=== PATIENT | male | born 1960 | race Asian ===

== ENCOUNTER 2019-11-07 10:50 | Outpatient (CLI) | payer BC, SELFPAY ==
[2019-11-07 13:04] LABS: Hepatitis B Surface Anti Res Negative
[2019-11-07 13:25] LABS: Hepatitis B Surface Antigen Positive (Negative)
[2019-11-09 13:03] LABS: Hepatitis B Core Ab Total Reactive (Nonreactive); Hepatitis Be Antigen Nonreactive
== END 2019-11-07 10:51 | disposition home or self-care (01) ==
PROVIDERS: Visit Provider Internal Medicine Gastroenterology
DX: B16.9 Acute hepatitis B without delta-agent and without hepatic coma (principal)
CPT/HCPCS: 36415; 86704; 86706; 87340; 87350

== ENCOUNTER 2024-10-22 00:36 | Day surgery (SDC) | payer BC, SELFPAY ==
--- OUTSIDE RECORDS SUMMARY | 2024-10-22 00:39 | XMS_ITS | Clinical Summary ---
Author Organization [facility] Address [address] [place] [address] Care Team Providers Care Nurse Practitioner Manager Name Role Phone AdamsJonathan weaver Primary Care Provider [phone] Allergies No known active allergies Medications vitamin D3 (CHOLECALCIFEROL) 25 mcg tablet Take by mouth daily. Active Lutein 20 MG Tab Take 20 mg by mouth daily. Active atorvastatin (LIPITOR) 20 MG tabletIndications:M ixed hyperlipidemia Take 1 tablet (20 mg total) by mouth nightly at bedtime. at bedtime 90 tablet 1 4 Active lisinopril (PRINIVIL) 40 MG tabletIndications:E ssential hypertension Take 1 tablet daily. Pt needs appt before other refills are authorized. Can call [phone] to schedule. 90 tablet 1 5 Active valACYclovir (VALTREX) 500 MG tabletIndications:H erpes Take 1 tablet (500 mg total) by mouth daily. 90 tablet 1 5 Active Active Problems Problem Noted Date Diagnosed Date Osteopenia of necks of both femurs 12/19/2023 Liver lesion 04/13/2022 Arthralgia of both hands 02/22/2022 Hepatitis B no coma without hepatitis delta chronic (CMS/HCC HHS/HCC) 04/15/2020 Overview (11/01/2022): 07/28/20 Fibroscan CAP 321, LSM 5.8 kPa Essential hypertension 12/30/2014 Herpes 07/24/2014 Hyperlipidemia 02/04/2014 Resolved Problems Problem Noted Date Diagnosed Date Resolved Date Colon cancer screening 05/19/202112/18 Overview (05/19/2021): Added automatically from request for surgery [id number] Personal history of colonic polyps 05/19/2021 12/19/2023 Overview (05/19/2021): Added automatically from request for surgery [id number] Gall bladder polyp 02/27/2021 Elevated liver enzymes 04/21/202012/18 Rheumatoid factor positive 09/29/2017 0 12/19/2023 Pain, hand joint 09/26/2017 12/19/2023 Nasal congestion 02/16/2016 10/03/2018 Screening for prostate cancer 08/11/2015 03/21/2020 Immunizations Immunization Administration Dates Next Due PFIZER COVID-19 (ORIGINAL FO RMULATION, PURPLE CAP) mRNA, LNP-S, PF, 30 MCG/0.3 ML DOSE 07/22/2021,10/20/2020,09/29/2020 Varicella/MMR (Proquad) 09/19/2023 Family History Relation Status Comments Brother 1 Alive Brother 2 Alive Brother 3 Alive Brother 4 Alive Daughter Alive Father Maternal Grandfather Maternal Grandmother Mother Paternal Grandfather Paternal Grandmother Sister 1 Alive Sister 2 Alive Son Alive Social History Tobacco Use Types Packs/Day Years Used Date Smoking Tobacco: Never Passive Smoke Exposure: Never Smokeless Tobacco: Never Tobacco Cessation:Counseling Given: Not Answered Alcohol Use Standard Drinks/Week Comments Not Currently 0 (1 standard drink = 0.6 oz pur e alcohol) PHQ-2 Answer Date Recorded Patient Health Questionnaire-2 Score 0 11/01/2022 Sex and Gender Information Value Date Recorded Sex Assigned at Not on file Legal Sex Male 8:17 PM CDT Gender Identity Male 07/07/2021 5:56 AM TUNA PURSE SEINER Sexual Orientation Straight 07/07/2021 5: 56 AM TUNA PURSE SEINER Last Filed Vital Signs Vital Sign Reading Time Taken Comments Blood Pressure 133/77 12/19/2023 9:08 AM CDT Pulse 58 12/19/2023 9:08 AM CDT Temperature 36.8 C (98.2 F) 12/19/2023 9:08 AM CDT Respiratory Rate 18 09/19/2023 7:29 AM CDT Oxygen Saturation 99% 12/19/2023 9:08 AM CDT Inhaled Oxygen Concentration - - Weight 74.2 kg (163 lb 8 oz) 12/19/2023 9:08 AM CDT Height 182.9 cm (6') 12/19/2023 9:08 AM CDT Body Mass Index 22.17 12/19/2023 9:08 AM CDT Plan of Treatment Upcoming Encounters Date Type Department Care Team (Late st Contact Info) Description 03/04/2025 2:20 PM CDT Office Visit [facility] Family Medicine - [address] [address] Jonathan Lamas DO [address] [place] [address] Health Maintenance Due Date Last Done Comments Pneumococcal Vaccine: Pediatrics (0 to 5 Years) and At-Risk Patients (6 to 49 Years) (1 of 2 - PCV) 1968 DTaP, Tdap and Td Vaccines (1 - Tdap) 1981 RSV Immunization or 60+ Years (1 - Risk 60-74 years 1-dose series) 2022 Zoster Vaccines (1 of 2) 11/14/2023 COVID-19 Vaccine ( season) 2024 10/02/2023, 04/17/2022, 07/22/2021, Additional history exists PHQ-2 (Physician [place]) 07/11/2024 11/01/2022 Annual Physical 12/18/2024 12/19/2023, 10/10, 10/12/2021, Additional history exists Colorectal Cancer Screening Colonoscopy (10 Years) 07/13/2031 07/13/2021, 07/13/2021 Hepatitis C Completed 08/24/2022, 10/02/2019 Meningococcal B Vaccine Aged Out No l onger eligible based on patient's age to complete this topic Meningococcal Vaccine Aged Out No des yola eligible based on patient's age to complete this topic RSV Immunizations Under 20 Months Aged Out No longer eligible based on patient's age to complete this topic Procedures Procedure Name Priority Date/Time Associated Diagnosis Comments COLONOSCOPY Routine 07/13/2021 7:59 AM TUNA PURSE SEINER HEPATITIS C ANTIBODY Routine 10/02/2019 9:11 AM CDT Routine medical exam Essential hypertension Need for hepatitis C screening test from Last 3 Months or Most Recently Relevant to Health Maintenance Results * HEPATITIS C ANTIBODY (10/02/2019 9:11 AM CDT) HEPATITIS C AB NON-REACTI VE NON-REACTI VE 10/02/2019 7:43 PM CDT [facility] 10/02/2019 9:11 AM CDT [facility] Final Resul t Performing Organization Address City/State/[facility] Co de Phone Number [facility] [address] [place] [address], from Last 3 Months or Most Recently Relevant to Health Maintenance Insurance Care Teams Nurse Practitioner Manager Relationship Specialty Start Date End Date Jonathan Lamas DO [address] [place] [address] PCP - General FAMILY PRACTICE 12/14/23
--- OUTSIDE RECORDS SUMMARY | 2024-10-22 00:39 | XMS_ITS | Clinical Summary ---
Author Organization [facility] Address [address] [place] [address] Care Team Providers Care Tank Farm Operator Name Role Phone Bety Jones RN Unavailable Unavailable Ced Holcomb MD Primary Care Provider [phone] Source Comments [facility],non-owned Affiliates and Associated Physician Practices is amultiple site organization consisting of ambulatory clinics and hospital sitesin [place], [place], [place] and [place]. This disclosure is being madepursuant to the Care Everywhere program and may not contain all information available regarding this patient. Last updated 18.[facility] Allergies No known active allergies Medications * Be aware that medications may not be up to date on this document. Alwaysverify current medications with the patient. [place]-3 Fatty Acids (FISH OIL) 1000 MG capsule Take 1,000 mg by mouth Active Calcium Carb-Cholecalcif shelly (CALCIUM CARBONATE-VITAMI N D3 PO) Active atorvastatin (LIPITOR) 20 MG tablet Take 1 (one) tablet by mouth once daily 10/02/2019 Active diclofenac sodium EC (VOLTAREN) 75 MG tablet Take 1 tablet by mouth twice daily 03/11/2020 Active valACYclovir (VALTREX) 500 MG tablet Take 500 mg by mouth once daily 10/02/2019 Active B COMPLEX VITAMINS PO Active vitamin C (ASCORBIC ACID) 1000 MG tablet Take 1,000 mg by mouth once daily Active lisinopril (PRINIVIL; ZESTRIL) 20 MG tablet Take 1 (one) tablet by mouth once daily Active vitamin D3 (CHOLECALCIFEROL ) 25 MCG (1000 UNITS) tablet Take by mouth once daily Active Coenzyme Q10 (COQ10) 200 MG Take by mouth once daily Active lutein 20 MG tablet Take 1 (one) tablet by mouth once daily Active Active Problems Problem Noted Date Diagnosed Date Liver lesion 04/13/2022 Personal history of colonic polyps 05/19/2021 Overview (04/11/2024): Added automatically from request for surgery [id number] IMO Replacement Utility 04/11/2024 Gall bladder polyp 02/27/2021 Elevated liver enzymes 04/21/2020 Hepatitis B no coma without hepatitis delta manager privacy justyn 04/15/2020 Overview (07/28/2020): 07/28/20 Fibroscan CAP 321, LSM 5.8 kPa Essential hypertension 12/30/2014 Hyperlipidemia 02/04/2014 Immunizations Immunization Administration Dates Next Due iCoolhunt primary monoval ent 12+ yr 0.3mL Purple cap 07/22/2021,10/20/2020 Family History Medical History Relation Name Comments Hepatitis Brother 1 B Hepatitis Brother 2 B Hypertension Brother 2 Hepatitis Brother 3 B Hepatitis Brother 4 B Hepatitis Father B Hepatitis Mother B Hepatitis Sister 1 B Hepatitis Sister 2 B Relation Name Status Comments Brother 1 Alive Brother 2 Alive Brother 3 Alive Brother 4 Alive Father Mother Sister 1 Alive Sister 2 Alive Social History Tobacco Use Types Packs/Day Years Used Date Smoking Tobacco: Never Smokeless Tobacco: Never Alcohol Use Standard Drinks/Week Comments Never 0 (1 standard drink = 0.6 oz pur e alcohol) AUDIT-C Answer Date Recorded Q1: How often do you have a drink containing alc ohol? Never 04/15/2020 Average Number of Drinks Not on file 020 Frequency of Binge Drinking Not on file 12/2019 Sex and Gender Information Value Date Recorded Sex Assigned at Not on file Legal Sex Male 8:36 AM CDT Gender Identity Not on file Sexual Orientation Not on file Last Filed Vital Signs Vital Sign Reading Time Taken Comments Blood Pressure 154/75 08/24/2022 3:08 PM COURTROOM DEPUTY Pulse 64 08/24/2022 3:08 PM COURTROOM DEPUTY Temperature 36.4 C (97.6 F) 08/24/2022 3:08 PM COURTROOM DEPUTY Respiratory Rate 16 04/13/2022 10:18 AM CDT Oxygen Saturation 100% 08/24/2022 3:08 PM COURTROOM DEPUTY Inhaled Oxygen Concentration - - Weight 71 kg (156 lb 9.6 oz) 08/24/2022 3:08 PM COURTROOM DEPUTY Height 167.6 cm (5' 6 ) 08/24/2022 3:08 PM COURTROOM DEPUTY Body Mass Index 25.28 08/24/2022 3:08 PM COURTROOM DEPUTY Plan of Treatment Health Maintenance Due Date Last Done Comments COLOGUARD (AGES 45-75) - COLON CA SCREENING [address] COLONOGRAPHY - COLON CA SCREENING 1962 FIT - COLON CA SCREENING 1962 FLEX SIG - COLON CA SCREENING 1962 HIV SCREENING 1977 HEPATITIS C SCREENING 09/22/1980 DTAP/TDAP/TD VACCINES (1 - Tdap) 1981 PNEUMOCOCCAL VACCINE 50+ (1 of 2 - PCV) 1981 PNEUMOCOCCAL VACCINE (1 of 2 - PCV) 1981 ZOSTER VACCINE (1 of 2) 2012 HEPATITIS B VACCINE (1 of 3 - Risk 3-dose series) 2022 Respiratory Syncytial Virus (RSV) Vaccine Pt: or over 60 yrs (1 - Risk 60-74 years 1-dose series) 2022 COVID-19 VACCINE ( - season) 2024 07/22/2021, 10/20/2020, 09/29/2020 DEPRESSION SCREENING 07/11/2024 INFLUENZA VACCINE (Season Ended) 2025 SCREENING FOR DIABETES 08/24/2025 , 09/29/2021, 02/27/2021, Additional history exists COLONOSCOPY - COLON CA SCREENING 07/13/2031 07/13/2021, 07/13/2021 Colorectal Cancer Screening 07/13/2031 HIB VACCINE Aged Out No longer eligi ble based on patient's age to complete this topic HPV VACCINE Aged Out No longer eligi ble based on patient's age to complete this topic MENINGOCOCCAL (Group B) VACCINE SHARED DECISION-MAKING Aged Out No longer eligible based on patient's age to complete this topic MENINGOCOCCAL GROUPS A/C/Y/W VACCINE Aged Out No longer eligible based on patient's age to complete this topic Goals Goal Patient Goal Type Associated Problems Recent Progress Patient-Stated? Author Medication Management General On track( 023 3:31 PM COURTROOM DEPUTY) Bety Figueroa, RN Note: Expected end date: ongoing Interventions: Take all medications as prescribed Let your doctor know right away about any changes in your medications Make sure to request a refill of your medication at least one week prior to your last dose Safety General On track( 022 10:02 AM CDT) Bety Figueroa, RN Note: Expected end date: ongoing Interventions: Your nurse will assess your risk for falls/injury each visit Make sure appropriate safety devices are available and within reach Be aware of medications that could predispose you to falling Wear non-skid/rubber sole footwear Use some light at night in your room Procedures Procedure Name Priority Date/Time Associated Diagnosis Comments COMPREHENSIVE METABOLIC PANEL Routine 08/24/2022 1:59 PM COURTROOM DEPUTY Hepatitis B no coma without hepatitis delta chronic Elevated liver enzymes from Last 3 Months or Most Recently Relevant to Health Maintenance Results * (ABNORMAL) COMPREHENSIVE METABOLIC PANEL (08/24/2022 1:59 PM COURTROOM DEPUTY) BUN 24 7 - 26 mg/dL 08/24/2022 2:47 PM [facility] Creatinine 1.13 0.71 - 1.16 mg/dL 08/24/2022 2:47 PM [facility] Sodium 141 136 - 145 mmol/L 08/24/2022 2:47 PM [facility] Potassium 4.4 3.5 - 4.5 mmol/L 08/24/2022 2:47 PM [facility] Chloride 106 98 - 107 mmol/L 08/24/2022 2:47 PM [facility] CO2 25 22 - 29 mmol/L 08/24/2022 2:47 PM [facility] Glucose 103 70 - 115 mg/dL 08/24/2022 2:47 PM [facility] Calcium 9.6 8.4 - 10.2 mg/dL 08/24/2022 2:47 PM [facility] Protein Total 8.1 6.0 - 8.3 g/dL 08/24/2022 2:47 PM [facility] Albumin 4.3 3.4 - 5.0 g/dL 08/24/2022 2:47 PM [facility] Bilirubin Total 0.5 0.2 - 1.2 mg/dL 08/24/2022 2:47 PM [facility] Alkaline Phosphatase 60 40 - 150 U/L 08/24/2022 2:47 PM [facility] ALT 39 5 - 55 U/L 08/24/2022 2:47 PM [facility] AST 29 5 - 34 U/L 08/24/2022 2:47 PM [facility] Anion Gap 14 8 - 18 08/24/2022 2:47 PM [facility] BUN/Creatinine Ratio 21 7 - 23 08/24/2022 2:47 PM [facility] Osmolality Calculated 296 270 - 300 mOsm/kg 08/24/2022 2:47 PM [facility] Albumin/Globulin Ratio 1.1 1.1 - 2.3 08/24/2022 2:47 PM [facility] eGFR by CKD-EPI 75(L) >=90 mL/min/1.7 3 m2 08/24/2022 2:47 PM [facility] Blood BLOOD SPECIMEN / Unknown Lab Venipuncture / Unknown 08/24/2022 1:59 PM [facility] 08/24/2022 2:20 PM [facility] Nicola Caraballo MD LAB - CHEMISTRY ORDERABLES Fin al Result [facility] [address] [place] [address], [facility] [phone] from Last 3 Months or Most Recently Relevant to Health Maintenance Insurance ANTHEM ANTHEM ANTHEM Member Subscriber Plan / Payer (Ef fective 2019-Present) Name:Ziggy Ward Relation to Subscriber:Spouse Name:MELLY WARD Subscriber ID:Not on file Date of :1960 (Home) Address: [address] [place] [address] Payer ID:[id number] (NAIC) Type:PPO Address: [facility] [id number] [place] [id number] Care Teams Tank Farm Operator Relationship Specialty Start Date End Date Ced Holcomb MD PCP - General 04/13/22 Bety Jones, TERRY Registered Nurse 04/15/20
--- OUTSIDE RECORDS SUMMARY | 2024-10-22 00:39 | XMS_ITS | Encounter Summary ---
Author Organization [facility] Address 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 Gender Identity Not on file Sexual Orientation Not on file documented as of this encounter Plan of Treatment Not on file documented as of this encounter Procedures Procedure Name Priority Date/Time Associated Diagnosis Comments PSA Routine 12/31/2006 10:05 AM CDT documented in this encounter Results * PSA (12/31/2006 10:05 AM CDT) PSA 0.5 0.0 - 4.0 ng/mL INTERFACE SYSTEM Comment:Performed on [employer] E170 System 12/31/2006 10:0 5 AM CDT Cancer Center Only Yy CHEMISTRY ORDERABLES Edite d INTERFACE SYSTEM Refer to clinic/hospital department documented in this encounter Visit Diagnoses Not on filedocumented in this encounter Care Teams Credit Review Manager Relationship Specialty Start Date End Date Gonzalo Cortez MD PCP - General Family Practice 02/19/14 documented as of this encounter
--- OUTSIDE RECORDS SUMMARY | 2024-10-22 00:39 | XMS_ITS | Encounter Summary ---
Author Organization [facility] Address [address] [place] [address] Care Team Providers Care Regional Hr Manager Name Role Phone Mel Wells MANAGER GARAGE Primary Care Provider Zenaida Umanzor MANAGER GARAGE Primary Care Provider [phone] Jonathan Lamas DO Primary Care Provider [phone] Encounter Details Date Type Department Care Team (Late Contact Info) Description 07/19/2023 MyChart Message Enc [facility] [address] [place] [address] [facility] Provider Lisinopril Social History Tobacco Use Types Packs/Day Years Used Date Smoking Tobacco: Never Smokeless Tobacco: Never Alcohol Use Standard Drinks/Week Comments Not Currently 0 (1 standard drink = 0.6 oz pur e alcohol) PHQ-2 Answer Date Recorded Patient Health Questionnaire-2 Score 0 11/01/2022 Sex and Gender Information Value Date Recorded Sex Assigned at Not on file Legal Sex Male 8:17 PM CDT Gender Identity Male 07/07/2021 5:56 AM ORDER CONTROL CLERK BLOOD BANK Sexual Orientation Straight 07/07/2021 5: 56 AM ORDER CONTROL CLERK BLOOD BANK documented as of this encounter Plan of Treatment Upcoming Encounters Date Type Department Care Team (Late Contact Info) Description 03/04/2025 2:20 PM CDT Office Visit [facility] [address] [place] [address] Jonathan Lamas DO [address] [place] [address] documented as of this encounter Visit Diagnoses Not on filedocumented in this encounter Additional Health Concerns Assessment Noted Time PHQ-9 Depression Total Score: 0 11/02/19 23 7:43 AM CDT documented as of this encounter Care Teams Regional Hr Manager Relationship Specialty Start Date End Date Mel Wells NP PCP - General NURSE PRACTITIONER 01/08/22 12/07/23 Zenaida Reardon NP [address] [place] [address] PCP - General NURSE PRACTITIONER 12/08/23 12/13/23 Jonathan [place] [address] [place] [address] PCP - General FAMILY PRACTICE 12/14/23 documented as of this encounter
--- OUTSIDE RECORDS SUMMARY | 2024-10-22 00:39 | XMS_ITS | Encounter Summary ---
Author Organization [facility] Address 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
--- OUTSIDE RECORDS SUMMARY | 2024-10-22 00:39 | XMS_ITS | Clinical Summary ---
Author Organization [facility] Address [address] [place] [address] Phone Care Team Providers Care Producer Name Role Phone Gonzalo Cortez MD Primary Care Provider Allergies No known active allergies Medications simvastatin (ZOCOR) 20 mg tablet Take 20 mg by mouth Daily LATE. Active 0mega-3 fatty acids-vitamin E (FISH OIL) 1,000 mg Capsule Take 1,000 mg by mouth. Active CALCIUM CARBONATE/VITAMI N D3 (CALCIUM + D ORAL) Take by mouth. Active MULTIVITS/IRON FUM/FA/D3/LYCOP (MULTI FOR HIM ORAL) Take by mouth. 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 Gender Identity Not on file Sexual Orientation Not on file Last Filed Vital Signs Vital Sign Reading Time Taken Comments Blood Pressure 140/85 02/25/2014 12:33 PM CDT Pulse 63 02/25/2014 11:02 AM CDT Temperature 36 C (96.8 F) 02/25/2014 12:02 PM CDT Respiratory Rate 16 02/25/2014 12:33 PM CDT Oxygen Saturation 100% 02/25/2014 12:33 PM CDT Inhaled Oxygen Concentration - - Weight 73.3 kg (161 lb 9.6 oz) 02/25/2014 11:02 AM CDT Height 167.6 cm (5' 6 ) 02/25/2014 11:02 AM CDT Body Mass Index 26.08 02/25/2014 11:02 AM CDT Plan of Treatment Health Maintenance Due Date Last Done Comments DTAP/TDAP/TD VACCINES (1 - Tdap) 1981 FIT-DNA Q 3 years 09/28/2007 FIT/FOBT Q 1 year 09/28/2007 Flex Sig/CT Colonography Q 5 years 09/28/2007 ZOSTER VACCINE (1 of 2) 2012 INFLUENZA VACCINE (#1) 2024 COLORECTAL SCREENING 02/26/2024 02/25/2014, 02/25/2014 Colorectal Cancer Screening 02/26/2024 RSV VACCINE (60+ or ) (1 - 1-dose 75+ series) 2037 PNEUMOCOCCAL VACCINE 0-49 YEARS Aged Out No longer eligible b ased on patient's age to complete this topic Advance Directives For more information, please contact: [phone] * Full Code (Latest Code Status on File) Date Activated Date Inactivated Comments 02/25/2014 10:54 AM 02/25/2014 2:51 PM Care Teams Producer Relationship Specialty Start Date End Date Gonzalo Crotez MD PCP - General Family Practice 02/19/14
[2024-10-22 06:22] VITALS: BP 126/69; PULSE 70; RESP 20; TEMP 35.8; O2SAT 99; BMI 26.1
--- NOTE | 2024-10-22 06:25 | SUR.PREOP ---
Pt's stated pt passed out at 0200. Pt became diaphoretic. Denies hitting head and feels ok now. Drank 100 ml water once he awoke and has had a few sips since that time. Clinical Transplant Coordinator service offered to pt and family. states not needed.
[2024-10-22] MEDS: LACTATED RINGERS 1,000 ML 150 ML IV CONT (06:34)
--- NOTE | 2024-10-22 07:21 | P.PNAN_ITS ---
Anes - Initial Pre Proc Eval Procedure: Operation Date: 10/22/24 07:30 Proposed Procedures p Screening Colonoscopy - Marcus Suero MD Date/Time: 10/22/24 07:21 Surgeon: Marcus Suero MD Pre Op Diagnosis: screening malignant neoplasm colon Patient Data Age: 64 Gender: M Height: 1.68 m Weight: 73.4 kg Last Vital Signs Temp 96.5 F L 10/22/24 06:22 Pulse 70 10/22/24 06:22 Resp 20 10/22/24 06:22 BP 126/69 10/22/24 06:22 Pulse Ox 99 10/22/24 06:22 O2 Del Method Room Air 10/22/24 06:22 Allergies Allergy/AdvReac Type Severity Reaction Status Date / Time No Known Allergies Allergy Verified 10/22/24 06:21 Home Medications ?Medication ?Instructions ?Recorded ?Confirmed ?Type atorvastatin 20 mg tablet 20 mg PO DAILY 10/12/24 10/22/24 History lisinopril 40 mg tablet 40 mg PO DAILY 10/12/24 10/22/24 History valacyclovir 500 mg tablet 500 mg PO DAILY 10/12/24 10/22/24 History Patient hx anesthesia problems: none Family hx anesthesia problems: none Results Review: All pre-operative results and documents have been reviewed as part of the pre- operative evaluation. [facility] Social History Social History Smoking status: Never smoker Living arrangements: with family Spiritual care concerns: No Anes - Eval Final PreProcedure Day of Procedure 10/22/24 07:21 Patient weight: normal Heart: regular rate and rhythm Lungs: clear to auscultation Airway: Mallampati scale class II Neurological: alert and oriented Last oral intake: >/= 8 hours ASA classification: II Emergent: no Anesthetic plan: proceed Anesthesia type and monitoring: general GIVS and standard monitoring Results Review: All pre-operative results and documents have been reviewed as part of the pre- operative evaluation. Informed Consent: The patient's anesthetic plan and its attendant risks and benefits were discussed with the patient/family/POA. Questions were solicited and answers provided to the satisfaction of the patient/family/POA.
--- NOTE | 2024-10-22 07:31 | PM.HPGS ---
History of Present Illness History of Present Illness Consent: Risks, benefits, and alternatives have been discussed and questions answered. Patient agrees to proceed with procedure. Chief complaint: screening malignant neoplasm colon Narrative: Ziggy Fuentes is a 64 year old male here for screening colonoscopy, last one 5 years ago Review of Systems Review of Systems: All systems reviewed & are unremarkable except as noted in HPI and below PMFSH Past Medical History Medical History (Updated 10/22/24 @ 07:31 by Marcus Suero MD) Colon cancer screening Social History Social History Smoking status: Never smoker Living arrangements: with family Spiritual care concerns: No Meds Home Medications and Allergies Home Medications ?Medication ?Instructions ?Recorded ?Confirmed ?Type atorvastatin 20 mg tablet 20 mg PO DAILY 10/12/24 10/22/24 History lisinopril 40 mg tablet 40 mg PO DAILY 10/12/24 10/22/24 History valacyclovir 500 mg tablet 500 mg PO DAILY 10/12/24 10/22/24 History Allergies Allergy/AdvReac Type Severity Reaction Status Date / Time No Known Allergies Allergy Verified 10/22/24 06:21 Vital Signs Vital Signs - 24 hr 10/22/24 06:22 Temperature 96.5 F L Pulse Rate 70 Respiratory Rate 20 Blood Pressure 126/69 Pulse Oximetry 99 Oxygen Delivery Room Air Exam Const: General: comfortable and no acute distress HENMT: Face/Nose/Sinus: Normal nares present Eyes: General: appearance normal, both eyes and all related structures Neck: Neck: no JVD Resp: Auscultation: clear to auscultation bilaterally Cardio: Rate: regular rate Rhythm: regular rhythm GI: Inspection: non-distended GI Palp: Yes Soft to palpation Skin: General skin exam: normal color Neuro: General: gait normal Speech: normal speech Extrem: General: normal to inspection Psych: Mental Status: mental status grossly normal Assessment and Plan Assessment and plan (1) Colon cancer screening: Code(s): Z12.11 - Encounter for screening for malignant neoplasm of colon Status: Acute Assessment and Plan: colonoscopy
[2024-10-22 07:43] VITALS: BP 90/51; PULSE 68; RESP 18; O2SAT 98
[2024-10-22 07:53] VITALS: BP 103/58; PULSE 75; RESP 26; O2SAT 100
[2024-10-22 08:03] VITALS: BP 118/65; PULSE 69; RESP 16; O2SAT 100
== END 2024-10-22 08:11 | disposition home or self-care (01) ==
PROVIDERS: Visit Provider Internal Medicine Gastroenterology
PROC: 0DJD8ZZ Inspection of Lower Intestinal Tract, Via Natural or Artificial Opening Endoscopic (ICD-10-PCS; CPT 45378; principal; 2024-10-22 07:30)
DX: Z12.11 Encounter for screening for malignant neoplasm of colon (principal); K64.8 Other hemorrhoids
CPT/HCPCS: 45378; J2003; J2704; J7120

== ENCOUNTER 2025-05-13 14:24 | Outpatient (CLI) | payer BC, SELFPAY ==
--- NOTE | ~2025-05-13 | MR_ITS ---
EXAMINATION: MR abdomen wo/w con DATE: 05/13/2025 15:22 INDICATION: Liver mass. TECHNIQUE: Magnetic resonance imaging (MRI) of the abdomen was performed without and with 14 mL MultiHance intravenous contrast. COMPARISON: None. FINDINGS: There is a 10 mm mass in left hepatic lobe with delayed contrast hyperenhancement. There is cystic thickening of the fundus of the gallbladder, consistent with adenomyomatosis. The spleen, pancreas, and adrenal glands are normal. There are cysts in the kidneys measuring up to 4 mm in the left. There are no dilated loops of bowel. There are no pathologically enlarged lymph nodes. There is no free intraperitoneal fluid. IMPRESSION: 1. 10 mm mass in left hepatic lobe with delayed contrast hyperenhancement, likely a hemangioma. Reviewed, dictated and finalized at location [facility]. [facility] IMPRESSION: 1. 10 mm mass in left hepatic lobe with delayed contrast hyperenhancement, like ly a hemangioma.
== END 2025-05-13 14:25 | disposition home or self-care (01) ==
DX: K76.9 Liver disease, unspecified (principal)
CPT/HCPCS: 74183; A9577